=== PATIENT | male | born 1955 | race Caucasian/White ===

== ENCOUNTER 2017-12-20 09:59 | Observation (INO) | payer OTHER ==
[~2017-12-20] VITALS: Ht 172.7 cm; Wt 127.0 kg
[~2017-12-20 09:59] MED LIST: CARVEDILOL12.5 MG PO; CEPHALEXIN500 MG PO; FLOMAX0.4 MG PO; FUROSEMIDE40 MG PO; HYDRALAZINE HCL25 MG PO; LISINOPRIL10 MG PO; METOPROLOL TART25 MG PO; NITROGLYCERIN0.4 MG SL; NORCO 10-325 T1 EACH; OXYCONTIN10 MG PO; PROPAFENONE HC325 MG PO; SOMA350 MG PO; XARELTO20 MG
[2017-12-20] MEDS ORDERED: ASPIRIN 81 MG CHEW TAB PO ONE (10:15)
[2017-12-20 10:33] LABS: BASOPHILS # (AUTO) 0.1 (0.0-0.1); BASOPHILS % 1.3 % (0.0-1.0); EOSINOPHILS # (AUTO) 0.3 (0.0-0.4); EOSINOPHILS % 3.3 % (0.0-6.0); HEMATOCRIT 36.6 % (38.2-49.6); HEMOGLOBIN 11.4 g/dL (14.0-18.0); LYMPHOCYTES # (AUTO) 1.9 (1.0-3.2); LYMPHOCYTES % 23.7 % (18.0-39.1); MEAN CORPUSCULAR HEMOGLOBIN 25.4 pg (28-32); MEAN CORPUSCULAR HGB CONC 31.1 g/dL (31-35); MEAN CORPUSCULAR VOLUME 81.7 fL (81-99); MONOCYTES % 11.8 % (4.4-11.3); NEUTROPHILS # (AUTO) 4.9 (2.1-6.9); NEUTROPHILS % 59.7 % (38.7-80.0); PLATELET COUNT 257 x10e3/uL (140-360); RED BLOOD COUNT 4.48 x10e6/uL (4.3-5.7); RED CELL DISTRIBUTION WIDTH 14.7 % (11.7-14.4)
[2017-12-20 10:51] LABS: ALANINE AMINOTRANSFERASE 35 IU/L (0-55); ALBUMIN 3.7 g/dL (3.5-5.0); ALBUMIN/GLOBULIN RATIO 1.1 (0.8-2.0); ALKALINE PHOSPHATASE 43 IU/L (40-150); ANION GAP 15.6 mmol/L (8-16); BLOOD UREA NITROGEN 9 mg/dL (7-26); BUN/CREATININE RATIO 11 (6-25); CALCIUM 9.6 mg/dL (8.4-10.2); CARBON DIOXIDE 24 mmol/L (22-29); CHLORIDE 105 mmol/L (98-107); CREATINE KINASE 175 IU/L (30-200); EST GLOMERULAR FILTRATION RATE > 60 ML/MIN (60-); GLUCOSE 117 mg/dL (74-118); POTASSIUM 4.6 mmol/L (3.5-5.1); SODIUM 140 mmol/L (136-145)
--- NOTE | 2017-12-20 11:04 | Diagnostic Imaging Report ---
EXAMINATION: CHEST SINGLE (PORTABLE) INDICATION: Shortness of breath \S\chest \S\[id number] \S\1025 COMPARISON: 09/15/2016 FINDINGS: AP view TUBES and LINES: None. LUNGS: Limited by body habitus. Lungs are well inflated. No focal consolidation. Mild central vascular congestion. PLEURA: No pleural effusion or pneumothorax. HEART AND MEDIASTINUM: The cardiac silhouette is enlarged on this AP view. BONES AND SOFT TISSUES: No acute osseous lesion. Soft tissues are unremarkable. UPPER ABDOMEN: No free air under the diaphragm. IMPRESSION: No focal consolidation. Mild central vascular congestion. Signed by: Dr. Dominick Johnson MD on 12/20/2017 11:00 AM
[2017-12-20 11:05] LABS: BILIRUBIN,URINE NEGATIVE (NEGATIVE); CLARITY,URINE CLEAR (CLEAR); COLOR,URINE YELLOW (YELLOW); KETONES,URINE NEGATIVE (NEGATIVE); LEUKOCYTE ESTERASE ,URINE NEGATIVE (NEGATIVE); NITRITE,URINE NEGATIVE (NEGATIVE); PROTEIN,URINE DIPSTICK NEGATIVE (NEGATIVE); URINE UROBILINOGEN 0.2 mg/dL (0.2 - 1)
[2017-12-20 11:17] LABS: WBC,URINE (MAN) 0-5 /HPF (0-5)
[2017-12-20 11:21] LABS: INR 1.01; PROTHROMBIN TIME 12.5 seconds (11.9-14.5)
--- OUTSIDE RECORDS SUMMARY | 2017-12-20 12:08 | XMS REPORT ---
Author Author [facility] Address Unknown Phone Unavailable Care Team Providers Care Cigar Making Machine Operator Name Role Phone ROSMERY WESTON Unavailable Unavailable Problems This patient has no known problems. Allergies, Adverse Reactions, Alerts This patient has no known allergies or adverse reactions. Medications This patient has no known medications. Results Test Description Test Time Test Comments Text Results Atomic Results Result Comments CHEST SINGLE (PORTABLE) [facility] [address] [place], [place] [address] Patient Name: JUAN DIEGO HERNANDEZ MR #: [id number] : 1955 Age/Sex: 62/M Req #: [id number] Adm Physician: Ordered by: TYLER CUEVAS FIRE RANGER Report #: [id number] Location: ER Room/Bed: Procedure: [id number] DX/CHEST SINGLE (PORTABLE) Exam Date: 12/20/17 Exam Time: 1025 REPORT STATUS: Signed EXAMINATION: CHEST SINGLE (PORTABLE) INDICATION: Shortness of breath COMPARISON: 09/15/2016 FINDINGS: AP view TUBES and LINES: None. LUNGS: Limited by body habitus. Lungs are well inflated. No focal consolidation. Mild central vascular congestion. PLEURA: No pleural effusion or pneumothorax. HEART AND MEDIASTINUM: The cardiac silhouette is enlarged on this AP view. BONES AND SOFT TISSUES: No acute osseous lesion. Soft tissues are unremarkable. UPPER ABDOMEN: No free air under the diaphragm. IMPRESSION: No focal consolidation. Mild central vascular congestion. Signed by: Dr. Dominick Hitchcock MD on 12/20/2017 11 :00 AM Dictated By: DOMINICK HITCHCOCK MD 1100 Transcribed By: SANTOS on 12/20/17 1100 COPY TO: TYLER CUEVAS NP
[2017-12-20] MEDS ORDERED: HYDRALAZINE HCL 20 MG/ML VIAL IV PRN (12:30)
[2017-12-20] MEDS ORDERED: MORPHINE SULFATE 4 MG/ML SYR IV PRN (12:30)
[2017-12-20] MEDS ORDERED: MELATONIN 5 MG TABLET PO PRN (12:30)
[2017-12-20] MEDS ORDERED: HYDROCODONE/APAP 5MG-325MG TAB PO PRN (12:30)
[2017-12-20] MEDS ORDERED: ACETAMINOPHEN 325 MG TAB PO PRN (12:30)
[2017-12-20] MEDS ORDERED: ONDANSETRON HCL INJ 2 MG/ML VIAL IV PRN (12:30)
--- NOTE | 2017-12-20 13:19 | History and Physical ---
CHIEF COMPLAINT: Shortness of breath. HPI: This is a 62-year-old male, morbidly obese, with many medical issues. Of note, history of AFib, hypertension, and coronary artery disease. He presented to the ED after complaints of orthopnea that began early this morning while he was asleep. He also has dyspnea on exertion as well. He recently saw his rn psych this last week 4 days ago and had a 2-D echo at that time. The patient is very noncompliant with his diuretics. He denies any chest pain, palpitations or any other complaints at this time. The patient was seen and evaluated at bedside in the ER, currently doing well, satting well, with no other issues. He does report having some shortness of breath on examination, though he is on room air. REVIEW OF SYSTEMS: Pertinent positives: Shortness of breath, lower extremity edema. Pertinent negatives: Denies any chest pain, palpitations, nausea, vomiting, diarrhea, dysuria, hematuria, frequency, urgency, lightheadedness, dizziness, abdominal pain, headache, fever or any other complaints. The rest of the 14-point review of systems have been reviewed with the patient and are negative. ALLERGIES: NO KNOWN DRUG ALLERGIES. HOME MEDICATIONS 1. Cephalexin 500 mg p.o. q.i.d. 2. Furosemide 40 mg daily. 3. Nitroglycerin as needed. 4. Oxycodone 10 mg every 4 hours as needed for pain. PAST MEDICAL HISTORY: CHF, CAD, hypertension, chronic pain syndrome. SURGICAL HISTORY: He reports none. FAMILY HISTORY: Hypertension, diabetes. SOCIAL HISTORY: No drugs. No alcohol. He does not smoke. He lives alone at home. VITAL SIGNS: Temperature 98, pulse 64, respiratory rate 18, blood pressure 141/94, pulse ox 97% on room air. LAB FINDINGS: White count 8.1, hemoglobin 11.4, hematocrit 37, platelets 257. Coagulation: PT 12.5, INR 1, PTT 23. Chemistry: Sodium 140, potassium 4.6, chloride 105, bicarb 24, anion gap 15, BUN 9, creatinine 0.8, glucose 117, calcium 9.6. LFTs were normal. Troponin is 0.017. BNP 400. Total protein 7, albumin 3.7. Urinalysis is negative. MICROBIOLOGY: None. IMAGING STUDIES: Chest x-ray: No focal consolidation. Mild central vascular congestion. PHYSICAL EXAMINATION GENERAL: Not in acute distress. Alert and oriented x3. Cooperative on exam. HEENT: Head is normocephalic, atraumatic. Eyes: Pupils are equal, round and reactive to light bilaterally. The extraocular movements are intact bilaterally. NECK: Supple. Good range of motion throughout. No evidence of any erythema or exudates. The posterior pharynx has poor dentition. PULMONARY: Clear to auscultation bilaterally. No wheezing. No rales. No rhonchi appreciated. CARDIOVASCULAR: Positive S1 and S2. No murmurs, rubs or gallops appreciated. ABDOMEN: Soft, nondistended and nontender to palpation. Bowel sounds are present. MUSCULOSKELETAL: Strength 5/5 throughout. No evidence of any musculoskeletal deficit on examination. No weakness appreciated. NEUROLOGIC: Cranial nerves II through XII were grossly intact. No evidence of any neurological deficit on exam. SKIN: Intact. Warm to touch. Good capillary refill. PSYCHIATRIC: Normal affect and mood. EXTREMITIES: He has 2+ pedal edema, bilateral lower extremities. IMPRESSION 1. Acute exacerbation of congestive heart failure with underlying shortness of breath. 2. Hypertension. 3. Chronic pain syndrome. 4. Prophylaxis. 5. Fluids, electrolytes and nutrients. 6. Disposition. PLAN: At this time, there is no recent 2-D echo. Unsure about the type of heart failure that he has but seems to be that he may have underlying diastolic dysfunction. Troponins are negative. Will continue to trend. EKG shows no acute findings. Cardiology consulted. Continue cardioprotective medications. Lasix 40 mg IV q.6 h. times 6 doses with scheduled potassium supplements. We are going to resume all his home medications and monitor him closely. He will be under observation and will monitor overnight. Pain control. Antinausea medication and p.r.n. hydralazine as needed for blood pressure if elevated. Job#: [id number]
[2017-12-20] MEDS: METOPROLOL TARTRATE 25 MG TAB PO SCH ×3 (13:25→20:15)
[2017-12-20] MEDS: PROPAFENONE HCL SR 325 MG CAPCR PO SCH (13:42)
[2017-12-20 14:07] VITALS: BP 172/88
[2017-12-20 14:48] VITALS: BP 127/87
[2017-12-20 14:55] VITALS: BP 127/87
[2017-12-20 16:00] VITALS: BP 147/79
[2017-12-20 17:43] VITALS: BP 150/73
[2017-12-20] MEDS: FUROSEMIDE INJ 10 MG/ML 4 ML VIAL IV SCH (17:44)
[2017-12-20 20:00] VITALS: BP 131/80
[2017-12-20] MEDS ORDERED: TAMSULOSIN HCL 0.4 MG CAP PO SCH (21:00)
[2017-12-21 00:19] VITALS: BP 117/56
[2017-12-21 00:56] LABS: CREATINE KINASE MB 1.3 ng/mL (0-5.0)
[2017-12-21] MEDS: PROPAFENONE HCL SR 325 MG CAPCR PO SCH (01:00)
[2017-12-21] MEDS: FUROSEMIDE INJ 10 MG/ML 4 ML VIAL IV SCH (01:34)
[2017-12-21] MEDS ORDERED: ASPIRIN 81 MG CHEW TAB PO SCH (09:00)
[2017-12-21] MEDS ORDERED: POTASSIUM CHLORIDE 20 MEQ TAB CR PO SCH (09:00)
--- NOTE | 2017-12-21 11:41 | Discharge Summary ---
FINAL DISCHARGE DIAGNOSES 1. Patient left against medical advice. 2. Patient was being treated for underlying acute exacerbation of congestive heart failure with lower extremity edema. 3. Patient was being treated for shortness of breath. LOCKER ROOM MANAGER: Cardiology. VITAL SIGNS: Patient left against medical advice. LABS: His white count was 8.1, hemoglobin 11.4, hematocrit 37, platelets 257. Coagulations are normal. Chemistries: Sodium 140, potassium 4.6, chloride 105, bicarb 24, anion gap 15, BUN 9, creatinine 0.8. Glucose is 117. Calcium is 9.6. LFTs were normal. Troponins were negative. Urinalysis was negative. MICROBIOLOGY: None. IMAGING STUDIES: Chest x-ray showed evidence of mild central vascular congestion. HOSPITAL COURSE: This 62-year-old male, morbidly obese, with history of CHF, comes in with complaints of shortness of breath and worsening lower extremity edema. Patient was admitted under observation and started on IV Lasix for diuresis. Patient was doing well in the ER but still required some oxygen. Once the patient was admitted, the patient initially was doing well, then approximately around 4 a.m., he wanted to leave against medical advice, and he reported that he wanted to go outside and smoke plus he got tired of urinating too much. Patient left against medical advice. Patient signed appropriate documents left in the chart. MEDICATIONS: Left AMA. DISPOSITION: Left AMA. FOLLOWUP: Left against medical advice. LON GOMEZ MD Job#: [id number]
--- NOTE | 2017-12-21 17:16 | Consultation ---
DATE OF CONSULTATION: December 20, 2017 REQUESTING PHYSICIAN: Dr. Strickland. REASON FOR CONSULTATION: CHF. HISTORY OF PRESENT ILLNESS: Mr. Martinez is a 62-year-old gentleman with past medical history as listed below, presented with complaints of shortness of breath and leg edema. Patient states that he got short of breath more than usual yesterday and also noticed some leg swelling and so decided to come to the hospital. He was noted to be in CHF. Patient denies stopping any of his medications or eating a lot of salt. Denies any chest pain or palpitations. He has a history of paroxysmal atrial fibrillation. REVIEW OF SYMPTOMS CONSTITUTIONAL: Has some fatigue and weakness. HEENT: No headache, blurring of vision, seizures, or syncope. CARDIOVASCULAR: No chest pain. Has dyspnea. No orthopnea or leg edema. RESPIRATORY: No cough, fever, or expectoration. GI: No abdominal pain, vomiting, or diarrhea. : No dysuria, frequency, or incontinence. ALLERGIES: NO KNOWN DRUG ALLERGIES. MEDICATIONS: See list. PAST MEDICAL HISTORY 1. History of hypertension. 2. History of CHF. 3. History of paroxysmal atrial fibrillation. 4. History of hyperlipidemia. PAST SURGICAL HISTORY: History of hernia repair in 1994. SOCIAL HISTORY: Does not smoke or drink. FAMILY HISTORY: Noncontributory. PHYSICAL EXAMINATION GENERAL: Obese gentleman, alert, oriented, not in any obvious distress. VITALS: Heart rate is 56, blood pressure is 177/101. HEENT: Atraumatic. NECK: No JVD, bruit, thyromegaly, or lymphadenopathy. CARDIOVASCULAR: First and 2nd heart sounds are heard. No murmurs, rubs, or gallops appreciated. CHEST: Decreased air entry at the bases. No adventitious sounds appreciated. ABDOMEN: Obese and nontender. EXTREMITIES: Edema 2+. LABS: WBC is 8.1, hemoglobin 11.4, hematocrit 36.6, and platelets are 257,000. Sodium is 140, potassium 4.6, chloride is 105, BUN is 9, creatinine is 0.8, and glucose is 117. AST is 30, ALT is 35, and alkaline phosphatase is 43. CK is 175. Troponin is 0.017. BNP is 396. IMPRESSIONS 1. Congestive heart failure; [id number]-fhvwrxv diastolic. 2. Hypertension. 3. Paroxysmal atrial fibrillation. 4. Obesity. 5. History of hyperlipidemia. PLAN 1. IV diuresis. 2. Patient had an echocardiogram done recently as an outpatient which showed an ejection fraction of 50 to 55%, mild concentric LVH. 3. Patient has a history of paroxysmal atrial fibrillation. He has refused to take any anticoagulation, just takes aspirin. 4. His is on propafenone, can continue the same. 5. I's and O's. 6. Fluid restriction. 7. Further cardiac workup depending on the clinical course. Discussed my impression, plan, and management with the patient and he understands. As always, I appreciate and thank you very much for your referral. Job#: [id number] CF
== END 2017-12-21 06:43 | disposition left against medical advice (07) ==
LOC: ER 09:59 → ERHOLD 12:05 → IMCU 13:31 → UNDODISOB 12-21 06:43
PROVIDERS: ADMIT Internal Medicine; ATTEND Internal Medicine
DX: I11.0 Hypertensive heart disease with heart failure (principal); I50.33 Acute on chronic diastolic (congestive) heart failure; E78.5 Hyperlipidemia, unspecified; E66.01 Morbid (severe) obesity due to excess calories; Z68.41 Body mass index [BMI] 40.0-44.9, adult; G89.4 Chronic pain syndrome; I48.0 Paroxysmal atrial fibrillation
CPT/HCPCS: 36415; 71045; 80053; 81001; 82550; 82553; 83880; 84484; 85025; 85610; 85730; 93005; 94760; 99284; G0378; J1940

== ENCOUNTER 2018-06-18 14:50 | Observation (INO) | payer OTHER ==
[~2018-06-18] VITALS: Ht 172.7 cm; Wt 128.0 kg
[2018-06-18] MEDS ORDERED: MELOXICAM7.5 MG PO (15:56)
[2018-06-18] MEDS ORDERED: PROPAFENONE HC225 MG PO (15:56)
[2018-06-18] MEDS ORDERED: ONE DAILY1 EAC1 PO (15:56)
[2018-06-18] MEDS ORDERED: ATORVASTATIN CA20 MG PO (15:56)
[2018-06-18] MEDS ORDERED: FISH OIL PO (15:56)
[2018-06-18] MEDS ORDERED: ASPIRIN81 MG PO (15:56)
[2018-06-18 16:15] LABS: BASOPHILS # (AUTO) 0.1 (0.0-0.1); BASOPHILS % 0.8 % (0.0-1.0); EOSINOPHILS # (AUTO) 0.1 (0.0-0.4); EOSINOPHILS % 1.5 % (0.0-6.0); HEMATOCRIT 41.9 % (38.2-49.6); HEMOGLOBIN 13.6 g/dL (14.0-18.0); LYMPHOCYTES # (AUTO) 1.6 (1.0-3.2); LYMPHOCYTES % 17.8 % (18.0-39.1); MEAN CORPUSCULAR HGB CONC 32.5 g/dL (31-35); MEAN CORPUSCULAR VOLUME 89.3 fL (81-99); MONOCYTES # (AUTO) 0.9 (0.2-0.8); MONOCYTES % 10.1 % (4.4-11.3); NEUTROPHILS # (AUTO) 6.2 (2.1-6.9); NEUTROPHILS % 69.4 % (38.7-80.0); PLATELET COUNT 207 x10e3/uL (140-360); RED BLOOD COUNT 4.69 x10e6/uL (4.3-5.7); RED CELL DISTRIBUTION WIDTH 13.3 % (11.7-14.4)
[2018-06-18 16:19] LABS: INR 1.09; PROTHROMBIN TIME 13.3 seconds (11.9-14.5)
[2018-06-18 16:23] LABS: BILIRUBIN,URINE NEGATIVE (NEGATIVE); CLARITY,URINE CLEAR (CLEAR); COLOR,URINE YELLOW (YELLOW); KETONES,URINE NEGATIVE (NEGATIVE); LEUKOCYTE ESTERASE ,URINE NEGATIVE (NEGATIVE); NITRITE,URINE NEGATIVE (NEGATIVE); PROTEIN,URINE DIPSTICK NEGATIVE (NEGATIVE); URINE UROBILINOGEN 0.2 mg/dL (0.2 - 1)
[2018-06-18 16:27] LABS: ALANINE AMINOTRANSFERASE 50 IU/L (0-55); ALBUMIN 3.8 g/dL (3.5-5.0); ALBUMIN/GLOBULIN RATIO 1.2 (0.8-2.0); ALKALINE PHOSPHATASE 44 IU/L (40-150); ANION GAP 17.2 mmol/L (8-16); BLOOD UREA NITROGEN 16 mg/dL (7-26); BUN/CREATININE RATIO 16 (6-25); CALCIUM 9.9 mg/dL (8.4-10.2); CARBON DIOXIDE 22 mmol/L (22-29); CHLORIDE 103 mmol/L (98-107); CREATINE KINASE 142 IU/L (30-200); CREATININE, SERUM 1.01 mg/dL (0.72-1.25); EST GLOMERULAR FILTRATION RATE > 60 ML/MIN (60-); GLUCOSE 135 mg/dL (74-118); POTASSIUM 4.2 mmol/L (3.5-5.1); SODIUM 138 mmol/L (136-145)
[2018-06-18 16:33] LABS: BACTERIA,URINE MODERATE /HPF; CALCIUM OXALATE CRYSTALS,UR FEW (FEW); EPITHELIAL CELLS,URINE RARE /LPF
[2018-06-18 16:47] LABS: THYROID STIMULATING HORMONE 3.483 uIU/mL (0.350-4.940)
[2018-06-18] MEDS ORDERED: DILTIAZEM HCL 5 MG/ML 5 ML VIAL IV NR (16:47)
--- NOTE | 2018-06-18 17:03 | Diagnostic Imaging Report ---
A single frontal view of the chest. HISTORY: Chest pain COMPARISON: None available. DISCUSSION: Portable technique, limits sensitivity of the exam. Soft tissue attenuation partially limits sensitivity of the exam. Overlying monitoring leads. Tubes/Lines: None Lungs and pleura: Low lung volumes result in bibasilar vascular crowding, accentuation of the pulmonary interstitial markings, central pulmonary vasculature, and the cardiac silhouette. Allowing for these limitations, the findings are as follows: No evidence of a consolidative pneumonia or pulmonary alveolar edema. No definite pleural effusion or pneumothorax is identified. Heart and mediastinum: The cardiomediastinal silhouette appears unremarkable. Bones: No acute osseous lesion is identified, given this limited exam. IMPRESSION: No acute radiographic abnormality. Signed by: Dr. Lefty Ratliff D.O., M.M.M. on 06/18/2018 4:59 PM
[2018-06-18] MEDS: SODIUM CHLORIDE 0.9% 1000ML 1,000 ML IV SCH (17:45)
[2018-06-18 19:15] VITALS: BP 132/74
[2018-06-18 19:45] VITALS: BP 130/74
[2018-06-18 20:00] VITALS: BP 130/74
[2018-06-19] MEDS: SODIUM CHLORIDE 0.9% 1000ML 1,000 ML IV SCH (00:25)
[2018-06-19 00:40] VITALS: BP 124/58
[2018-06-19 03:40] VITALS: BP 139/65
[2018-06-19] MEDS ORDERED: FUROSEMIDE 40 MG TAB PO PRN (07:00)
[2018-06-19] MEDS ORDERED: METOPROLOL TARTRATE 25 MG TAB PO SCH (07:30)
[2018-06-19 08:00] VITALS: BP 159/74
[2018-06-19] MEDS ORDERED: HYDRALAZINE HCL 20 MG/ML VIAL IV PRN (08:15)
[2018-06-19] MEDS ORDERED: HYDRALAZINE HCL 25 MG TAB PO ONE (08:45)
--- NOTE | 2018-06-19 08:55 | Consultation ---
DATE OF CONSULTATION: June 18, 2018 CARDIOLOGY CONSULTATION REASON FOR CONSULTATION: AFib with RVR. HPI: This is a morbidly obese 63-year-old male that presented with palpitations. According to the patient, he was at the [employer] office. He was pissed off and very mad that his heart started pounding. He also complained of right knee pain. He kept having excruciating pain that he decided to come into the emergency room for evaluation. He has a history of paroxysmal AFib and refused to be on p.o. anticoagulation, but only on aspirin. He denied any chest pain, any dizziness, any shortness of breath, any diaphoresis or headache. Troponin was negative. EKG showed AFib, irregularly irregular. PAST MEDICAL HISTORY: Hypertension, CHF, paroxysmal AFib, hyperlipidemia, CAD, chronic pain, obesity, and BPH. PAST SURGICAL HISTORY: Hernia repair. SOCIAL HISTORY: Does not smoke or drink. FAMILY HISTORY: Noncontributory. REVIEW OF SYSTEMS: Negative except as mentioned above. He came in with AFib and he converted back to normal sinus rhythm with some PACs. PHYSICAL EXAMINATION VITAL SIGNS: Temperature 97, heart rate 60, blood pressure 159/60, respirations 18, oxygen saturation 97% on room air. GENERAL: He is awake, alert, and oriented times 3. HEENT: Mucous membrane moist. NECK: Supple. LUNGS: Bilateral clear to auscultation. CARDIOVASCULAR: S1 and S2 present. ABDOMEN: Soft. NEUROLOGICAL: Intact. EXTREMITIES: With no edema. LABS: Sodium 138, potassium 4.2, chloride 103, CO2 22, BUN 16, creatinine 1.01, glucose 136. White blood cell 8.93, hemoglobin 13.6, hematocrit 41.9, and platelets 207,000. IMPRESSION 1. Paroxysmal atrial fibrillation. 2. Hypertension. 3. Obesity. 4. Hyperlipidemia. 5. History of chronic pain. ASSESSMENT AND PLAN 1. Will go ahead and get an echo to assess the LV and the valve function. 2. Risks and benefits of aspirin and Xarelto explained to him. He finally agreed to start Xarelto. 3. His heart rate has been 59-60. Will go ahead and hold beta romina if heart rate is less than 60. Further cardiac workup pending clinical course. Thank you for this consult. DICTATED BY STEPHANIE VARGAS NP Job#: [id number] RI
[2018-06-19 09:56] VITALS: BP 159/79
--- NOTE | 2018-06-19 09:59 | History and Physical ---
CHIEF COMPLAINT: This is a 63-year-old gentleman, comes in with chest pain and pounding heart. HISTORY OF PRESENTING ILLNESS: This is Mr. Luan Martinez with a history of AFib in the past, was in usual state of health until he started to have a fast and a pounding heart beat and questionable chest pain. The patient checked his blood pressure, it was normal, but his heart rate went from 120 to 140 and the patient came in and was admitted for AFib with rapid ventricular response. The patient was recently started on propafenone (Rythmol) by Dr. Weaver and apparently the patient has not yet taken it, also has history of taking metoprolol for rate control. Patient was also on Xarelto, he did not like it, he stopped it, has not done any cardiac workup. No stress test has been done, and patient refuses to have a cardiac cath and/or stress test at this time. PAST MEDICAL HISTORY: History of hypertension, history of AFib with RVR. SURGICAL HISTORY: Ventral hernia repair and septorhinoplasty in the past too. REVIEW OF SYSTEMS: Positive for chest pain. The patient has taken 2 nitroglycerins prior to coming here and it did help him. Positive for some shortness of breath. No nausea, vomiting, diarrhea. No constipation or rectal bleeding. No hematochezia, no hematemesis. No abdominal bleeding. No melena. No diplopia. No blurry vision. No altered mental status either. MEDICATIONS: He was taking at home were metoprolol 25 mg extended release tablets. He also takes atorvastatin 40 mg for his hyperlipidemia, tamsulosin 0.4 mg for his BPH, and aspirin. The patient was recently started on propafenone (Rythmol) 225 mg. He also takes meloxicam for arthritis. PHYSICAL EXAMINATION: GENERAL: Patient is alert and oriented x3. Patient is morbidly obese. VITAL SIGNS: Blood pressure is 139/65, respiration of 18, pulse of 61, pulse oximetry 94% on room air. HEENT: Normocephalic, atraumatic. Patient has symptoms and signs of sleep apnea. CVS: S1 and S2. Irregularly irregular. ABDOMEN: Nontender, nondistended. There is a ventral scar present. EXTREMITIES: No clubbing. Positive for edema. LABORATORY VALUES: Initial white count was 8.93, hemoglobin of 13.6, neutrophil count of 69.4, no left shift present. Chemistry: Sodium of 138, BUN 16, creatinine 1.01. Glucose is 159, the patient has diabetes, has been given metformin, but has refused taking metformin. AST was 42. TSH was 3.48. Coags were normal. Urine also shows some moderate bacteria with hyaline cast in it. IMAGING STUDIES: Chest x-ray shows no acute radiographic abnormalities. The patient has been asked to do a echo and at this time he refuses; and has to call Dr. Weaver and check for echo results. ASSESSMENT: Mqv[age]-zyz-ndfn-old male with diabetes mellitus, history of hypertension, history of atrial fibrillation, comes in with atrial fibrillation with rapid ventricular response. Cardiac enzymes were negative. The patient was given Cardizem intravenously with improvement. Patient will be admitted. Will talk to Dr. Weaver about further recommendation and care. Will recommend a cardiac catheterization and/or stress test patient will talk to Dr. Weaver about it, and also echocardiogram. Will add a thyroid-stimulating hormone, T4, T3 to his panel and continue monitoring his cardiac panels. I did talk to him about his diabetes. Patient at this time does not want any medications. Job#: [id number]
[2018-06-19] MEDS ORDERED: HYDROCODONE/APAP 5MG-325MG TAB PO PRN (10:30)
[2018-06-19 12:32] VITALS: BP 150/78
[2018-06-19] MEDS ORDERED: XARELTO20 MG PO ×2 (13:34→13:35)
[2018-06-19] MEDS ORDERED: RIVAROXABAN 20 MG TABLET PO SCH (17:00)
[2018-06-19] MEDS ORDERED: TAMSULOSIN HCL 0.4 MG CAP PO SCH (21:00)
[2018-06-19] MEDS ORDERED: ATORVASTATIN 40 MG TAB PO SCH (21:00)
[2018-06-19] MEDS ORDERED: ATORVASTATIN 20 MG TAB PO SCH (21:00)
== END 2018-06-19 13:51 | disposition home or self-care (01) ==
LOC: ER 14:50 → ERHOLD 16:48 → IMCU 18:43
PROVIDERS: ADMIT Family Medicine; ATTEND Family Medicine
DX: I48.2 Chronic atrial fibrillation (principal); R00.2 Palpitations; R07.9 Chest pain, unspecified; F17.210 Nicotine dependence, cigarettes, uncomplicated; N40.0 Benign prostatic hyperplasia without lower urinary tract symptoms; M19.90 Unspecified osteoarthritis, unspecified site; E11.9 Type 2 diabetes mellitus without complications; E78.5 Hyperlipidemia, unspecified; E66.9 Obesity, unspecified; G89.29 Other chronic pain; I25.10 Atherosclerotic heart disease of native coronary artery without angina pectoris; I11.0 Hypertensive heart disease with heart failure; I50.9 Heart failure, unspecified; Z68.41 Body mass index [BMI] 40.0-44.9, adult
CPT/HCPCS: 36415; 71045; 80053; 81001; 82550; 82553; 82948; 83036; 84443; 84484; 85025; 85610; 93005; 99284; G0378 ×2; J7030; J0360

== ENCOUNTER 2019-01-02 03:31 | Emergency (ER) | payer OTHER ==
[~2019-01-02] VITALS: Ht 172.7 cm; Wt 127.9 kg
[~2019-01-02 03:31] MED LIST changes: +ASPIRIN81 MG PO; +ATORVASTATIN CA20 MG PO; +FISH OIL PO; +MELOXICAM7.5 MG PO; +ONE DAILY1 EAC1 PO; +PROPAFENONE HC225 MG PO; +XARELTO20 MG PO
--- OUTSIDE RECORDS SUMMARY | 2019-01-02 03:33 | XMS REPORT | Clinical Summary ---
Author Author [facility] Address Unknown Phone Unavailable Care Team Providers Care Acid Condenser Name Role Phone Lencho Kidd MD PCP Allergies Not on File Medications Not on file Active Problems Not on file Social History Date Tobacco Use Types Packs/Day Years Used Never Assessed Sex Assigned at Date Recorded Not on file Industry Job Start Date Occupation Not on file Not on file Not on file Travel End Travel History Travel Start No recent travel history available. Last Filed Vital Signs Not on file Plan of Treatment Not on file Results Not on fileafter 01/01/2018 Insurance Payer Benefit Subscriber ID Type Phone Address Plan / Group MEDICAID - MEDICAID [facility] xxxxxxxxx Medicaid CARE COMM STAR Contracted PLAN
[2019-01-02] MEDS ORDERED: KETOROLAC TROMETHAMINE 60 MG/2 ML VIAL IM ONE (04:30)
--- NOTE | 2019-01-02 04:34 | Diagnostic Imaging Report ---
Exam: Abdominal film Clinical History: Upper abdominal pain Comparison: None. DISCUSSION: Frontal view of the abdomen shows a nonobstructive bowel gas pattern with mild amount of retained stool.There are no dilated, air-filled loops of bowel. There are no abnormal calcifications.No acute bone abnormality. Lung bases are clear. IMPRESSION: 1. Nonobstructive bowel gas pattern. The staff physician below has personally reviewed this exam on the date of dictation. Signed by: Dr. Yoni Tse M.D. on 01/02/2019 4:31 AM
[2019-01-02] MEDS ORDERED: ULTRAM50 MG PO (05:09)
[2019-01-02] MEDS ORDERED: LIDOCAINE 5% PATCH TP ONE (05:18)
[2019-01-02] MEDS: LIDOCAINE 5% PATCH TP ONE ×2 (05:23→06:28)
[2019-01-02 06:02] LABS: BASOPHILS # (AUTO) 0.1 (0.0-0.1); BASOPHILS % 0.8 % (0.0-1.0); EOSINOPHILS # (AUTO) 0.2 (0.0-0.4); EOSINOPHILS % 2.2 % (0.0-6.0); HEMATOCRIT 46.5 % (38.2-49.6); HEMOGLOBIN 15.3 g/dL (14.0-18.0); LYMPHOCYTES # (AUTO) 1.3 (1.0-3.2); LYMPHOCYTES % 15.6 % (18.0-39.1); MEAN CORPUSCULAR HEMOGLOBIN 28.2 pg (28-32); MEAN CORPUSCULAR HGB CONC 32.9 g/dL (31-35); MEAN CORPUSCULAR VOLUME 85.6 fL (81-99); MONOCYTES # (AUTO) 0.6 (0.2-0.8); MONOCYTES % 7.4 % (4.4-11.3); NEUTROPHILS # (AUTO) 6.1 (2.1-6.9); NEUTROPHILS % 73.8 % (38.7-80.0); PLATELET COUNT 195 x10e3/uL (140-360); RED BLOOD COUNT 5.43 x10e6/uL (4.3-5.7); RED CELL DISTRIBUTION WIDTH 17.7 % (11.7-14.4)
[2019-01-02 06:19] LABS: ALANINE AMINOTRANSFERASE 68 IU/L (0-55); ALBUMIN 4.1 g/dL (3.5-5.0); ALBUMIN/GLOBULIN RATIO 1.2 (0.8-2.0); ALKALINE PHOSPHATASE 49 IU/L (40-150); ANION GAP 15.3 mmol/L (8-16); BLOOD UREA NITROGEN 14 mg/dL (7-26); BUN/CREATININE RATIO 13 (6-25); CALCIUM 9.8 mg/dL (8.4-10.2); CARBON DIOXIDE 24 mmol/L (22-29); CHLORIDE 99 mmol/L (98-107); CREATININE, SERUM 1.07 mg/dL (0.72-1.25); EST GLOMERULAR FILTRATION RATE > 60 ML/MIN (60-); GLUCOSE 132 mg/dL (74-118); LIPASE 24 U/L (8-78); POTASSIUM 4.3 mmol/L (3.5-5.1); SODIUM 134 mmol/L (136-145)
[2019-01-02] MEDS ORDERED: HYDROCODONE/APAP 10MG-325MG TAB PO ONE (07:15)
--- NOTE | 2019-01-02 07:55 | Diagnostic Imaging Report ---
HISTORY: ^RUQ PAIN TECHNIQUE: Selected images from limited abdominal ultrasound provided for INTERPRETATION: COMPARISON: None. FINDINGS: Pancreas: Not visualized due to bowel gas. Liver: Measures 16.2 cm in sagittal plane. The echotexture is normal. No mass in the visualized portions. Portal Vein: Measures 1.0 cm. Proper directional flow on spectral Doppler interrogation. Biliary Tree: Normal Gallbladder: Present. A 2 cm gallstone in the gallbladder neck is mobile. No gallbladder wall thickening or pericholecystic fluid. CBD: 0.3 cm. Right Kidney: 10.5 cm in greatest length. The echotexture is normal. There is no evidence for mass. There is no collecting system dilatation or evidence of obstruction. No renal calculi evident. No adjacent free fluid or fluid collections. Visualized IVC and aorta are normal. There is no free fluid. IMPRESSION: Cholelithiasis. No sonographic evidence of acute cholecystitis. Normal biliary tree. Signed by: Dr. Chidi Parrish MD on 01/02/2019 7:52 AM
--- NOTE | 2019-01-02 08:30 | NUR ---
DR. WESTON AT BEDSIDE DISCUSSING FOLLOW UP WITH SURGEON
== END 2019-01-02 08:39 | disposition home or self-care (01) ==
LOC: ER 03:31
DX: R10.11 Right upper quadrant pain (principal); R11.0 Nausea; K80.70 Calculus of gallbladder and bile duct without cholecystitis without obstruction; I10 Essential (primary) hypertension; E78.5 Hyperlipidemia, unspecified; I48.91 Unspecified atrial fibrillation; I25.10 Atherosclerotic heart disease of native coronary artery without angina pectoris
CPT/HCPCS: 36415; 74018; 76705; 80053; 83605; 83690; 85025; 93005; 99284; J1885

== ENCOUNTER 2019-01-23 00:55 | Observation (INO) | payer OTHER ==
[~2019-01-23] VITALS: Ht 172.7 cm; Wt 111.6 kg
[~2019-01-23 00:55] MED LIST changes: +ULTRAM50 MG PO
--- OUTSIDE RECORDS SUMMARY | 2019-01-23 00:58 | XMS REPORT | Clinical Summary ---
Author Author [facility] Address Unknown Phone Unavailable Care Team Providers Care Kier Operator Name Role Phone Lencho Kidd MD PCP [...] Not on file Results Not on fileafter 01/22/2018 Insurance Payer Benefit Subscriber ID Type Phone Address Plan / Group MEDICAID - MEDICAID MGD [facility] xxxxxxxxx Medicaid CARE COMM STAR Contracted PLAN
[2019-01-23] MEDS ORDERED: ASPIRIN 81 MG CHEW TAB PO ONE (01:30)
[2019-01-23 02:14] LABS: BILIRUBIN,URINE NEGATIVE (NEGATIVE); CLARITY,URINE CLEAR (CLEAR); COLOR,URINE STRAW (YELLOW); KETONES,URINE NEGATIVE (NEGATIVE); LEUKOCYTE ESTERASE ,URINE NEGATIVE (NEGATIVE); NITRITE,URINE NEGATIVE (NEGATIVE); PROTEIN,URINE DIPSTICK NEGATIVE (NEGATIVE); URINE UROBILINOGEN 0.2 mg/dL (0.2 - 1)
[2019-01-23 02:15] LABS: INR 0.86; PROTHROMBIN TIME 12.2 seconds (11.9-14.5)
[2019-01-23 02:16] LABS: PARTIAL THROMBOPLASTIN TIME 28.8 seconds (23.8-35.5)
[2019-01-23 02:20] LABS: EPITHELIAL CELLS,URINE RARE /LPF; RBC,URINE 0-5 /HPF (0-5); WBC,URINE (MAN) 0-5 /HPF (0-5)
[2019-01-23 02:21] LABS: BASOPHILS # (AUTO) 0.1 (0.0-0.1); BASOPHILS % 1.3 % (0.0-1.0); EOSINOPHILS # (AUTO) 0.3 (0.0-0.4); EOSINOPHILS % 4.8 % (0.0-6.0); HEMATOCRIT 47.1 % (38.2-49.6); HEMOGLOBIN 15.3 g/dL (14.0-18.0); LYMPHOCYTES # (AUTO) 1.8 (1.0-3.2); MEAN CORPUSCULAR HEMOGLOBIN 28.2 pg (28-32); MEAN CORPUSCULAR HGB CONC 32.5 g/dL (31-35); MEAN CORPUSCULAR VOLUME 86.7 fL (81-99); MONOCYTES # (AUTO) 0.7 (0.2-0.8); MONOCYTES % 10.9 % (4.4-11.3); NEUTROPHILS # (AUTO) 3.3 (2.1-6.9); NEUTROPHILS % 53.7 % (38.7-80.0); PLATELET COUNT 203 x10e3/uL (140-360); RED BLOOD COUNT 5.43 x10e6/uL (4.3-5.7); RED CELL DISTRIBUTION WIDTH 16.4 % (11.7-14.4)
[2019-01-23 02:26] LABS: ALANINE AMINOTRANSFERASE 47 IU/L (0-55); ALBUMIN 3.9 g/dL (3.5-5.0); ALBUMIN/GLOBULIN RATIO 1.1 (0.8-2.0); ALKALINE PHOSPHATASE 51 IU/L (40-150); BLOOD UREA NITROGEN 12 mg/dL (7-26); BUN/CREATININE RATIO 14 (6-25); CARBON DIOXIDE 23 mmol/L (22-29); CHLORIDE 104 mmol/L (98-107); CREATINE KINASE 142 IU/L (30-200); CREATININE, SERUM 0.86 mg/dL (0.72-1.25); EST GLOMERULAR FILTRATION RATE > 60 ML/MIN (60-); GLUCOSE 99 mg/dL (74-118); MAGNESIUM 2.1 MG/DL (1.3-2.1); SODIUM 137 mmol/L (136-145)
--- NOTE | 2019-01-23 02:43 | Diagnostic Imaging Report ---
EXAMINATION: CHEST SINGLE (PORTABLE) INDICATION: ^AFIB COMPARISON: Chest x-ray 06/18/2018. 12/20/2017. FINDINGS: AP view TUBES and LINES: None. LUNGS: Lungs are well inflated. Lungs are clear. There is no evidence of pneumonia or pulmonary edema. PLEURA: No pleural effusion or pneumothorax. HEART AND MEDIASTINUM: The cardiomediastinal silhouette is unremarkable. BONES AND SOFT TISSUES: No acute osseous lesion. Soft tissues are unremarkable. UPPER ABDOMEN: No free air under the diaphragm. IMPRESSION: No acute thoracic abnormality. Signed by: Dr. Bird Perez M.D. on 01/23/2019 2:39 AM
[2019-01-23] MEDS ORDERED: METOPROLOL TARTRATE INJ 1 MG/ML VIAL IV ONE (02:45)
[2019-01-23] MEDS ORDERED: ENOXAPARIN SODIUM INJ 100 MG/ML SYR SC ONE (04:00)
[2019-01-23] MEDS ORDERED: ONDANSETRON HCL INJ 2MG/ML 2ML 2 MG/ML VIAL IV PRN (04:15)
--- OUTSIDE RECORDS SUMMARY | 2019-01-23 04:19 | XMS REPORT | Clinical Summary ---
Author Author [facility] Address Unknown Phone Unavailable Care Team Providers Care Inspector Rag Sorting Name Role Phone Lencho Kidd MD PCP [...] Plan / Group MEDICAID - MEDICAID MGD [facility] xxxxxxxxx Medicaid CARE COMM STAR Contracted PLAN
[2019-01-23 04:40] VITALS: BP 134/85
--- NOTE | 2019-01-23 04:40 | NUR ---
PATIENT IS A NEW ADMIT THAT ARRIVED VIA STRETCHER. PATIENT HAS BEEN ASSISTED INTO THE BED. BED IS IN LOWEST POSITION AND CALL MORALES IS WITHIN REACH. WILL CONTINUE TO MONITOR PATIENT.
--- NOTE | 2019-01-23 07:01 | NUR ---
report given to day nurse. patient is resting in bed. call rincon is within reach.
[2019-01-23] MEDS ORDERED: TRAMADOL HCL 50 MG TAB PO PRN (08:00)
[2019-01-23] MEDS ORDERED: OXYCODONE HCL 10 MG TAB CR PO PRN (08:00)
[2019-01-23] MEDS ORDERED: SENNOSIDES 8.6 MG TAB PO PRN (08:00)
[2019-01-23] MEDS ORDERED: ZOLPIDEM TARTRATE 5 MG TAB PO PRN (08:00)
[2019-01-23] MEDS ORDERED: ACETAMINOPHEN 325 MG TAB PO PRN (08:00)
[2019-01-23] MEDS ORDERED: PROPAFENONE HCL 225 MG CAPCR PO SCH (08:00)
[2019-01-23] MEDS ORDERED: FUROSEMIDE 40 MG TAB PO PRN (08:00)
[2019-01-23] MEDS ORDERED: NITROGLYCERIN 0.4 MG SUBL SL PRN (08:00)
[2019-01-23 08:36] VITALS: BP 130/57
[2019-01-23] MEDS ORDERED: MULTIVITAMINS/MINERALS TAB PO SCH (09:00)
[2019-01-23] MEDS ORDERED: ASPIRIN 81 MG ENTERIC COATED PO SCH (09:00)
[2019-01-23] MEDS ORDERED: FAMOTIDINE 20 MG/2 ML VIAL IV SCH (09:00)
[2019-01-23] MEDS ORDERED: METOPROLOL TARTRATE 50 MG TAB PO SCH (09:00)
[2019-01-23] MEDS ORDERED: RIVAROXABAN 20 MG TABLET PO SCH (09:00)
[2019-01-23 12:00] VITALS: BP 124/63
[2019-01-23 13:50] VITALS: BP 124/63
[2019-01-23] MEDS ORDERED: FAMOTIDINE 20 MG TAB PO SCH (16:30)
[2019-01-23] MEDS ORDERED: ATORVASTATIN 20 MG TAB PO SCH (21:00)
[2019-01-23] MEDS ORDERED: TAMSULOSIN HCL 0.4 MG CAP PO SCH (21:00)
== END 2019-01-23 14:54 | disposition home or self-care (01) ==
LOC: ER 00:55 → ERHOLD 04:16 → IMCU 04:41
PROVIDERS: ADMIT Internal Medicine; ATTEND Internal Medicine
DX: I48.2 Chronic atrial fibrillation (principal); I50.9 Heart failure, unspecified; N40.0 Benign prostatic hyperplasia without lower urinary tract symptoms; M54.9 Dorsalgia, unspecified; Z82.49 Family history of ischemic heart disease and other diseases of the circulatory system; Z79.01 Long term (current) use of anticoagulants
CPT/HCPCS: 36415; 71045; 80053; 81001; 82550; 82553; 83735; 83880; 84443; 84484; 85025; 85610; 85730; 93005; 99284; G0378; J1650

== ENCOUNTER 2021-08-06 23:57 | Emergency (ER) | payer MEDICARE, OTHER ==
[~2021-08-06] VITALS: Ht 172.7 cm; Wt 111.6 kg
[2021-08-07] MEDS ORDERED: DIGOXIN INJ 0.25 MG/ML 2 ML AMP IV STA (00:06)
[2021-08-07] MEDS ORDERED: DILTIAZEM HCL 5 MG/ML 5 ML VIAL IV STA (00:06)
[2021-08-07] MEDS ORDERED: METOPROLOL TARTRATE INJ 1 MG/ML VIAL IV STA (00:06)
[2021-08-07 00:27] LABS: BASOPHILS # (AUTO) 0.1 (0.0-0.1); BASOPHILS % 0.5 % (0.0-1.0); EOSINOPHILS # (AUTO) 0.1 (0.0-0.4); EOSINOPHILS % 0.5 % (0.0-6.0); LYMPHOCYTES # (AUTO) 2.3 (1.0-3.2); LYMPHOCYTES % 22.8 % (18.0-39.1); MEAN CORPUSCULAR HEMOGLOBIN 30.2 pg (28-32); MEAN CORPUSCULAR HGB CONC 32.6 g/dL (31-35); MEAN CORPUSCULAR VOLUME 92.7 fL (81-99); MONOCYTES # (AUTO) 1.1 (0.2-0.8); MONOCYTES % 11.4 % (4.4-11.3); NEUTROPHILS # (AUTO) 6.3 (2.1-6.9); PLATELET COUNT 224 x10e3/uL (140-360); RED BLOOD COUNT 4.96 x10e6/uL (4.3-5.7); RED CELL DISTRIBUTION WIDTH 12.9 % (11.7-14.4)
[2021-08-07 00:45] LABS: ALBUMIN 3.8 g/dL (3.5-5.0); ALBUMIN/GLOBULIN RATIO 1.4 (0.8-2.0); ANION GAP 14.8 mmol/L (8-16); CREATININE, SERUM 0.88 mg/dL (0.72-1.25); POTASSIUM 4.8 mmol/L (3.5-5.1)
[2021-08-07 01:25] LABS: CREATINE KINASE MB 8.9 ng/mL (0-5.0)
[2021-08-07 02:29] VITALS: BP 148/84
== END 2021-08-07 02:21 | disposition home or self-care (01) ==
LOC: ER 08-07 00:03
DX: I48.91 Unspecified atrial fibrillation (principal); I10 Essential (primary) hypertension
CPT/HCPCS: 36415; 71045; 80053; 82550; 82553; 83880; 84484; 85025; 85379; 93005; 99284; J1160

== ENCOUNTER 2022-01-16 14:41 | Emergency (ER) | payer MEDICARE, OTHER ==
[~2022-01-16] VITALS: Ht 172.7 cm; Wt 111.6 kg
== END 2022-01-16 15:45 | disposition home or self-care (01) ==
LOC: ER 15:43
DX: R04.0 Epistaxis (principal); I10 Essential (primary) hypertension; I50.9 Heart failure, unspecified; I48.91 Unspecified atrial fibrillation; M54.9 Dorsalgia, unspecified; G89.29 Other chronic pain; E66.9 Obesity, unspecified
CPT/HCPCS: 99282

== ENCOUNTER → 2022-06-26 | Day surgery (SDC) | payer MEDICARE, OTHER ==
[2022-06-24 11:45] LABS: BASOPHILS # (AUTO) 0.1 (0.0-0.1); BASOPHILS % 1.4 % (0.0-1.0); EOSINOPHILS # (AUTO) 0.2 (0.0-0.4); EOSINOPHILS % 3.9 % (0.0-6.0); HEMATOCRIT 43.2 % (38.2-49.6); HEMOGLOBIN 13.6 g/dL (14.0-18.0); LYMPHOCYTES # (AUTO) 1.6 (1.0-3.2); LYMPHOCYTES % 25.9 % (18.0-39.1); MEAN CORPUSCULAR HEMOGLOBIN 28.5 pg (28-32); MEAN CORPUSCULAR HGB CONC 31.5 g/dL (31-35); MEAN CORPUSCULAR VOLUME 90.4 fL (81-99); MONOCYTES # (AUTO) 0.6 (0.2-0.8); MONOCYTES % 9.8 % (4.4-11.3); NEUTROPHILS # (AUTO) 3.6 (2.1-6.9); NEUTROPHILS % 58.5 % (38.7-80.0); PLATELET COUNT 275 x10e3/uL (140-360); RED BLOOD COUNT 4.78 x10e6/uL (4.3-5.7); RED CELL DISTRIBUTION WIDTH 13.6 % (11.7-14.4)
[2022-06-24 12:04] LABS: CALCIUM 8.9 mg/dL (8.4-10.2); CREATININE, SERUM 0.92 mg/dL (0.72-1.25)
[~2022-06-26] MED LIST changes: +ACETAMINOPHEN/CODEINE 300MG - 30MG TAB ONE; +AFRIN15 ML INH; +ATROVENT HFA12.9 GM INH; +B&O 60MG R/S 60 MG SUPP PR ONE; +CEFTRIAXONE 1 GM VIAL ONE; +DEXAMETHASONE SOD PHOS INJ 4 MG/ML SDV ONE; +FENTANYL CITRATE/PF 100MCG/2 ML INJ ONE; +GENTAMICIN 80MG/NS 100 ML 200 ML IV ONE; +HYDROCODON-ACE1 EA11 PO; +IOPAMIDOL 610MG/1ML 300 MG/ML VIAL IV ONE; +LIDOCAINE HCL 2% LOCAL INJ 5 ML SDV VIAL INJ ONE; +MIDAZOLAM HCL 2 MG/2 ML VIAL ONE; +ONDANSETRON HCL INJ 2MG/ML 2ML 2 MG/ML VIAL ONE; +POVIDONE IODINE 0.05% 0.05 % ML PO ONE; +PROPOFOL IV EMULSION 10 MG/ML 20 ML VIAL ONE; +SEVOFLURANE INHAL SOLN 250 ML PEN BTL ONE
[2022-06-26 13:25] VITALS: BP 132/90
== END | disposition home or self-care (01) ==
LOC: OR 08:51
PROVIDERS: ATTEND Urology
DX: N40.1 Benign prostatic hyperplasia with lower urinary tract symptoms (principal); N13.8 Other obstructive and reflux uropathy; R39.14 Feeling of incomplete bladder emptying; N35.919 Unspecified urethral stricture, male, unspecified site; N32.89 Other specified disorders of bladder; I48.91 Unspecified atrial fibrillation; I11.0 Hypertensive heart disease with heart failure; I50.9 Heart failure, unspecified; R63.4 Abnormal weight loss; M19.90 Unspecified osteoarthritis, unspecified site; M54.9 Dorsalgia, unspecified; M25.569 Pain in unspecified knee; Z01.810 Encounter for preprocedural cardiovascular examination; Z01.812 Encounter for preprocedural laboratory examination; Z01.818 Encounter for other preprocedural examination; Z79.899 Other long term (current) drug therapy
CPT/HCPCS: 52005; C9740; 36415; 71046; 74420; 80048; 85025; 93005; C1758; J0696; J1100; J1580; J2001; J2250; J2405; J3010; L8699

== ENCOUNTER 2022-07-24 17:08 | Emergency (ER) | payer MEDICARE, OTHER ==
[~2022-07-24] VITALS: Ht 172.7 cm; Wt 104.3 kg
[~2022-07-24 17:08] MED LIST changes: -ACETAMINOPHEN/CODEINE 300MG - 30MG TAB ONE; -B&O 60MG R/S 60 MG SUPP PR ONE; -CEFTRIAXONE 1 GM VIAL ONE; -DEXAMETHASONE SOD PHOS INJ 4 MG/ML SDV ONE; -FENTANYL CITRATE/PF 100MCG/2 ML INJ ONE; -GENTAMICIN 80MG/NS 100 ML 200 ML IV ONE; -IOPAMIDOL 610MG/1ML 300 MG/ML VIAL IV ONE; -LIDOCAINE HCL 2% LOCAL INJ 5 ML SDV VIAL INJ ONE; -MIDAZOLAM HCL 2 MG/2 ML VIAL ONE; -ONDANSETRON HCL INJ 2MG/ML 2ML 2 MG/ML VIAL ONE; -POVIDONE IODINE 0.05% 0.05 % ML PO ONE; -PROPOFOL IV EMULSION 10 MG/ML 20 ML VIAL ONE; -SEVOFLURANE INHAL SOLN 250 ML PEN BTL ONE
[2022-07-24 17:29] LABS: BASOPHILS % 0.7 % (0.0-1.0); EOSINOPHILS # (AUTO) 0.1 (0.0-0.4); EOSINOPHILS % 0.9 % (0.0-6.0); HEMATOCRIT 41.3 % (38.2-49.6); HEMOGLOBIN 13.1 g/dL (14.0-18.0); LYMPHOCYTES # (AUTO) 0.8 (1.0-3.2); LYMPHOCYTES % 14.3 % (18.0-39.1); MEAN CORPUSCULAR HEMOGLOBIN 28.5 pg (28-32); MEAN CORPUSCULAR HGB CONC 31.7 g/dL (31-35); MONOCYTES # (AUTO) 0.1 (0.2-0.8); MONOCYTES % 2.2 % (4.4-11.3); NEUTROPHILS # (AUTO) 4.4 (2.1-6.9); NEUTROPHILS % 80.2 % (38.7-80.0); PLATELET COUNT 228 x10e3/uL (140-360); RED BLOOD COUNT 4.59 x10e6/uL (4.3-5.7); RED CELL DISTRIBUTION WIDTH 13.6 % (11.7-14.4)
[2022-07-24 17:47] LABS: ALBUMIN 3.9 g/dL (3.5-5.0); ALBUMIN/GLOBULIN RATIO 1.2 (0.8-2.0); ANION GAP 17.3 mmol/L (8-16); CALCIUM 9.3 mg/dL (8.4-10.2); CREATININE, SERUM 0.85 mg/dL (0.72-1.25); POTASSIUM 4.3 mmol/L (3.5-5.1)
[2022-07-24 17:51] LABS: AMPHETAMINES SCREEN,URINE NEGATIVE (NEGATIVE); BENZODIAZEPINES SCREEN,URINE NEGATIVE (NEGATIVE); PHENCYCLIDINE SCREEN,URINE NEGATIVE (NEGATIVE)
[2022-07-24 17:53] LABS: CREATINE KINASE MB 1.7 ng/mL (0-5.0)
[2022-07-24] MEDS ORDERED: IOPAMIDOL 370 MG/ML 100 ML INFUS..BTL INJ ONE (18:26)
[2022-07-24] MEDS ORDERED: AUGMENTIN 500-1 EACH PO (19:45)
[2022-07-24] MEDS ORDERED: VENTOLIN HFA18 GM INH (19:45)
== END 2022-07-24 19:55 | disposition home or self-care (01) ==
LOC: ER 17:13
DX: R06.02 Shortness of breath (principal); U07.1 COVID-19; I48.91 Unspecified atrial fibrillation; R07.89 Other chest pain; R94.31 Abnormal electrocardiogram [ECG] [EKG]
CPT/HCPCS: 36415; 71260; 80053; 80307; 82550; 82553; 83690; 83880; 84484; 85025; 85379; 93005; 99284; Q9967; U0002

== ENCOUNTER 2022-09-10 11:47 | Inpatient (IN) | payer MEDICARE, OTHER ==
[~2022-09-10] VITALS: Ht 172.7 cm; Wt 104.3 kg
[~2022-09-10 11:47] MED LIST changes: +AUGMENTIN 500-1 EACH PO; +VENTOLIN HFA18 GM INH
[2022-09-10] MEDS ORDERED: SODIUM CHLORIDE FLUSH 10 ML SYR IV PRN (12:30)
[2022-09-10 12:36] LABS: BASOPHILS # (AUTO) 0.1 (0.0-0.1); EOSINOPHILS # (AUTO) 0.2 (0.0-0.4); EOSINOPHILS % 2.6 % (0.0-6.0); HEMATOCRIT 38.9 % (38.2-49.6); HEMOGLOBIN 12.5 g/dL (14.0-18.0); LYMPHOCYTES # (AUTO) 1.2 (1.0-3.2); LYMPHOCYTES % 15.9 % (18.0-39.1); MEAN CORPUSCULAR HEMOGLOBIN 28.2 pg (28-32); MEAN CORPUSCULAR HGB CONC 32.1 g/dL (31-35); MEAN CORPUSCULAR VOLUME 87.6 fL (81-99); MONOCYTES # (AUTO) 0.8 (0.2-0.8); MONOCYTES % 10.8 % (4.4-11.3); NEUTROPHILS % 69.3 % (38.7-80.0); PLATELET COUNT 197 x10e3/uL (140-360); RED BLOOD COUNT 4.44 x10e6/uL (4.3-5.7); RED CELL DISTRIBUTION WIDTH 13.4 % (11.7-14.4)
[2022-09-10 12:42] LABS: INR 0.97; PROTHROMBIN TIME 13.1 seconds (11.9-14.5)
[2022-09-10 12:43] LABS: PARTIAL THROMBOPLASTIN TIME 28.1 seconds (23.8-35.5)
[2022-09-10 12:53] LABS: ALBUMIN 3.8 g/dL (3.5-5.0); ALBUMIN/GLOBULIN RATIO 1.4 (0.8-2.0); ANION GAP 15.3 mmol/L (8-16); CALCIUM 8.9 mg/dL (8.4-10.2); CREATININE, SERUM 0.85 mg/dL (0.72-1.25); POTASSIUM 4.3 mmol/L (3.5-5.1)
[2022-09-10 13:15] LABS: CLARITY,URINE CLEAR (CLEAR); COLOR,URINE YELLOW (YELLOW); KETONES,URINE NEGATIVE (NEGATIVE); LEUKOCYTE ESTERASE ,URINE NEGATIVE (NEGATIVE); NITRITE,URINE NEGATIVE (NEGATIVE); PROTEIN,URINE DIPSTICK NEGATIVE (NEGATIVE); URINE UROBILINOGEN 0.2 mg/dL (0.2 - 1)
[2022-09-10 13:26] LABS: RBC,URINE 0-5 /HPF (0-5); WBC,URINE (MAN) 0-5 /HPF (0-5)
[2022-09-10] MEDS ORDERED: ONDANSETRON HCL INJ 2MG/ML 2ML 2 MG/ML VIAL IV PRN (14:15)
[2022-09-10] MEDS ORDERED: ASPIRIN 81 MG CHEW TAB PO ONE (14:15)
[2022-09-10] MEDS ORDERED: SODIUM CHLORIDE FLUSH 10 ML SYR INJ PRN (14:15)
[2022-09-10 18:05] VITALS: BP 142/95
[2022-09-10] MEDS ORDERED: ACETAMINOPHEN 325 MG TAB PO PRN (18:30)
[2022-09-10 20:00] VITALS: BP 142/95
[2022-09-10] MEDS: HYDROCODONE/APAP 5MG-325MG TAB PO PRN (21:31)
[2022-09-10] MEDS: APIXAB 2.5 MG TABLET PO SCH (22:27)
[2022-09-11] VITALS (8 sets, daily range): BP systolic 128–150; BP diastolic 87–96
[2022-09-11] MEDS: HYDROCODONE/APAP 5MG-325MG TAB PO PRN ×2 (06:58→16:08)
[2022-09-11] MEDS: ASPIRIN 325 MG TAB EC PO SCH (07:52)
[2022-09-11] MEDS: APIXAB 2.5 MG TABLET PO SCH ×2 (07:53→16:03)
[2022-09-11] MEDS: METOPROLOL TARTRATE 25 MG TAB PO SCH ×2 (07:54→16:02)
[2022-09-11] MEDS ORDERED: IOPAMIDOL 370 MG/ML 100 ML INFUS..BTL INJ ONE (10:32)
[2022-09-11] MEDS ORDERED: SODIUM CHLORIDE 0.9% 0 ML ONE (10:32)
[2022-09-11] MEDS: PROPAFENONE HCL 225 MG CAPCR PO SCH ×2 (12:41→21:34)
[2022-09-12] VITALS: BP 122/88
[2022-09-12 04:00] VITALS: BP 132/90
[2022-09-12] MEDS: HYDROCODONE/APAP 5MG-325MG TAB PO PRN ×2 (05:43→14:50)
[2022-09-12 07:12] LABS: BASOPHILS # (AUTO) 0.1 (0.0-0.1); BASOPHILS % 1.6 % (0.0-1.0); EOSINOPHILS # (AUTO) 0.4 (0.0-0.4); EOSINOPHILS % 5.6 % (0.0-6.0); HEMATOCRIT 39.9 % (38.2-49.6); LYMPHOCYTES # (AUTO) 1.4 (1.0-3.2); LYMPHOCYTES % 22.4 % (18.0-39.1); MEAN CORPUSCULAR HEMOGLOBIN 28.4 pg (28-32); MEAN CORPUSCULAR HGB CONC 32.6 g/dL (31-35); MEAN CORPUSCULAR VOLUME 87.3 fL (81-99); MONOCYTES % 14.8 % (4.4-11.3); NEUTROPHILS # (AUTO) 3.6 (2.1-6.9); NEUTROPHILS % 55.1 % (38.7-80.0); PLATELET COUNT 187 x10e3/uL (140-360); RED BLOOD COUNT 4.57 x10e6/uL (4.3-5.7); RED CELL DISTRIBUTION WIDTH 13.4 % (11.7-14.4)
[2022-09-12 07:33] LABS: ALBUMIN 3.7 g/dL (3.5-5.0); ALBUMIN/GLOBULIN RATIO 1.3 (0.8-2.0); ANION GAP 14.4 mmol/L (8-16); CALCIUM 8.8 mg/dL (8.4-10.2); CREATININE, SERUM 0.82 mg/dL (0.72-1.25); POTASSIUM 4.4 mmol/L (3.5-5.1)
[2022-09-12 07:50] LABS: CHOL/HDL RATIO 3.4 (3.9-4.7)
[2022-09-12 08:10] LABS: THYROID STIMULATING HORMONE 2.661 uIU/mL (0.350-4.940)
[2022-09-12] MEDS: APIXAB 2.5 MG TABLET PO SCH ×2 (08:27→16:45)
[2022-09-12] MEDS: PROPAFENONE HCL 225 MG CAPCR PO SCH (08:28)
[2022-09-12] MEDS: ASPIRIN 325 MG TAB EC PO SCH (08:28)
[2022-09-12] MEDS: METOPROLOL TARTRATE 25 MG TAB PO SCH ×2 (08:29→16:45)
[2022-09-12] MEDS ORDERED: LACTULOSE SYRUP 20 GM/30 ML UDC PO ONE (10:00)
[2022-09-12] MEDS ORDERED: ONDANSETRON HCL 4 MG ORAL DISINTEGRATING TAB PO PRN (10:15)
[2022-09-12 12:11] VITALS: BP 131/94
[2022-09-12 15:13] VITALS: BP 148/92
[2022-09-12] MEDS ORDERED: ELIQUIS2.5 MG PO (15:55)
[2022-09-12] MEDS ORDERED: LIPITOR20 MG PO (16:05)
== END 2022-09-12 17:50 | disposition home or self-care (01) | DRG 69 ==
LOC: ER 11:56 → ERHOLD 14:12 → MED/SURG 18:05 → OBSVTOIN 09-12 09:03
PROVIDERS: ADMIT Internal Medicine; ATTEND Internal Medicine
DX: G45.9 Transient cerebral ischemic attack, unspecified (principal); I48.0 Paroxysmal atrial fibrillation; R04.0 Epistaxis; Z79.01 Long term (current) use of anticoagulants; E66.09 Other obesity due to excess calories; Z68.35 Body mass index [BMI] 35.0-35.9, adult; N40.0 Benign prostatic hyperplasia without lower urinary tract symptoms; Z53.29 Procedure and treatment not carried out because of patient's decision for other reasons
CPT/HCPCS: 36415; 70450; 71045; 80053; 80061; 81001; 82948; 83880; 84443; 84484; 85025; 85610; 85730; 93005; 93880; 94760; 99284; G0378; J2405; J7050; Q9967

== ENCOUNTER → 2022-10-28 | Outpatient (CLI) | payer MEDICARE, OTHER ==
[~2022-10-28] MED LIST changes: +ELIQUIS2.5 MG PO; +LIPITOR20 MG PO
== END ==
LOC: US 08:06
PROVIDERS: ATTEND Urology
DX: D41.01 Neoplasm of uncertain behavior of right kidney (principal)
CPT/HCPCS: 76770

== ENCOUNTER → 2023-03-13 | Outpatient (CLI) | payer MEDICARE, OTHER ==
[~2023-03-13] MED LIST changes: +LIDOCAINE HCL 2% LOCAL INJ 5 ML SDV VIAL INJ ONE; +POVIDONE IODINE 0.05% 0.05 % ML PO ONE; +PROPOFOL IV EMULSION 10 MG/ML 20 ML VIAL ONE
== END ==
LOC: MRI 09:05
PROVIDERS: ATTEND Family Medicine
DX: M47.896 Other spondylosis, lumbar region (principal); M54.16 Radiculopathy, lumbar region
CPT/HCPCS: 72148; J2001; J2704

== ENCOUNTER 2024-04-18 14:32 | Emergency (ER) | payer MEDICARE, OTHER ==
[~2024-04-18] VITALS: Ht 170.2 cm; Wt 113.4 kg
[~2024-04-18 14:32] MED LIST changes: +FEROSUL325 MG PO; -LIDOCAINE HCL 2% LOCAL INJ 5 ML SDV VIAL INJ ONE; -POVIDONE IODINE 0.05% 0.05 % ML PO ONE; -PROPOFOL IV EMULSION 10 MG/ML 20 ML VIAL ONE
[2024-04-18 15:43] LABS: BASOPHILS # (AUTO) 0.1 (0.0-0.1); BASOPHILS % 0.9 % (0.0-1.0); EOSINOPHILS # (AUTO) 0.2 (0.0-0.4); EOSINOPHILS % 3.1 % (0.0-6.0); HEMATOCRIT 42.3 % (38.2-49.6); HEMOGLOBIN 13.8 g/dL (14.0-18.0); LYMPHOCYTES # (AUTO) 1.3 (1.0-3.2); MEAN CORPUSCULAR HEMOGLOBIN 31.4 pg (28-32); MEAN CORPUSCULAR HGB CONC 32.6 g/dL (31-35); MEAN CORPUSCULAR VOLUME 96.4 fL (81-99); MONOCYTES # (AUTO) 0.8 (0.2-0.8); MONOCYTES % 14.7 % (4.4-11.3); NEUTROPHILS # (AUTO) 3.1 (2.1-6.9); NEUTROPHILS % 57.9 % (38.7-80.0); PLATELET COUNT 165 x10e3/uL (140-360); RED BLOOD COUNT 4.39 x10e6/uL (4.3-5.7); RED CELL DISTRIBUTION WIDTH 12.2 % (11.7-14.4); WHITE BLOOD COUNT 5.43 x10e3/uL (4.8-10.8)
[2024-04-18 16:02] LABS: ALANINE AMINOTRANSFERASE 33 IU/L (0-55); ALBUMIN 3.7 g/dL (3.5-5.0); ALBUMIN/GLOBULIN RATIO 1.2 (0.8-2.0); ALKALINE PHOSPHATASE 38 IU/L (40-150); ANION GAP 15.2 mmol/L (8-16); BILIRUBIN,TOTAL 1.1 mg/dL (0.2-1.2); BLOOD UREA NITROGEN 14 mg/dL (7-26); BUN/CREATININE RATIO 16 (6-25); CALCIUM 8.9 mg/dL (8.4-10.2); CARBON DIOXIDE 22 mmol/L (22-29); CHLORIDE 104 mmol/L (98-107); CREATININE, SERUM 0.85 mg/dL (0.72-1.25); EST GLOMERULAR FILTRATION RATE 95 ML/MIN (>=60); GLUCOSE 104 mg/dL (74-118); POTASSIUM 4.2 mmol/L (3.5-5.1); SODIUM 137 mmol/L (136-145); TOTAL PROTEIN 6.8 g/dL (6.5-8.1)
[2024-04-18 16:20] LABS: TROPONIN I < 0.001 ng/mL (0-0.300)
[2024-04-18 16:30] VITALS: PULSE 62; RESP 16; TEMP 98.1; O2SAT 96
== END 2024-04-18 16:40 | disposition home or self-care (01) ==
LOC: ER 14:38
DX: R06.02 Shortness of breath (principal); I10 Essential (primary) hypertension; I50.9 Heart failure, unspecified; I48.91 Unspecified atrial fibrillation; E66.9 Obesity, unspecified; M54.9 Dorsalgia, unspecified; M25.561 Pain in right knee; M79.671 Pain in right foot; G89.29 Other chronic pain; R94.31 Abnormal electrocardiogram [ECG] [EKG]
CPT/HCPCS: 36415; 71045; 80053; 83880; 84484; 85025; 93005; 99284

== ENCOUNTER → 2025-02-04 | Day surgery (SDC) | payer MEDICARE, OTHER ==
[2025-02-01 11:56] LABS: BASOPHILS # (AUTO) 0.1 (0.0-0.1); BASOPHILS % 1.7 % (0.0-1.0); EOSINOPHILS # (AUTO) 0.1 (0.0-0.4); EOSINOPHILS % 2.2 % (0.0-6.0); HEMOGLOBIN 14.1 g/dL (14.0-18.0); LYMPHOCYTES # (AUTO) 1.6 (1.0-3.2); LYMPHOCYTES % 27.6 % (18.0-39.1); MEAN CORPUSCULAR HEMOGLOBIN 31.2 pg (28-32); MEAN CORPUSCULAR HGB CONC 33.6 g/dL (31-35); MEAN CORPUSCULAR VOLUME 92.9 fL (81-99); MONOCYTES # (AUTO) 0.8 (0.2-0.8); MONOCYTES % 13.5 % (4.4-11.3); NEUTROPHILS # (AUTO) 3.2 (2.1-6.9); NEUTROPHILS % 54.3 % (38.7-80.0); PLATELET COUNT 211 x10e3/uL (140-360); RED BLOOD COUNT 4.52 x10e6/uL (4.3-5.7); RED CELL DISTRIBUTION WIDTH 12.7 % (11.7-14.4); WHITE BLOOD COUNT 5.86 x10e3/uL (4.8-10.8)
[~2025-02-04] MED LIST changes: +ACETAMINOPHEN 1000 MG/100 ML 100 ML IV ONE; +AMBIEN10 MG PO; +ATORVASTATIN CA10 MG PO; +DEXAMETHASONE SOD PHOS INJ 4 MG/ML SDV ONE; +FENTANYL CITRATE/PF 100MCG/2 ML INJ ONE; +HYDROCODON-ACE1 EA12; +LIDOCAINE HCL 2% LOCAL INJ 5 ML SDV VIAL INJ ONE; +ONDANSETRON HCL INJ 2MG/ML 2ML 2 MG/ML VIAL ONE; +PHENYLEPHRINE HCL 1% 10 MG/ML VIAL ONE; +PROPOFOL IV EMULSION 10 MG/ML 20 ML VIAL ONE; +SEVOFLURANE INHAL SOLN 250 ML PEN BTL ONE
[2025-02-04] MEDS: LACTATED RINGER'S 1,000 ML ONE (06:07)
[2025-02-04] MEDS: CEFAZOLIN SODIUM 2 GM ONE (06:07)
[2025-02-04 07:13] LABS: ANION GAP 15.1 mmol/L (8-16); CREATININE, SERUM 0.91 mg/dL (0.72-1.25); POTASSIUM 4.1 mmol/L (3.5-5.1)
[2025-02-04 10:45] VITALS: BP 118/89; PULSE 85; RESP 15; O2SAT 98
== END | disposition home or self-care (01) ==
LOC: OR 05:15
PROVIDERS: ATTEND Podiatrist Foot Surgery
DX: G57.61 Lesion of plantar nerve, right lower limb (principal); M20.41 Other hammer toe(s) (acquired), right foot; G58.8 Other specified mononeuropathies; M06.9 Rheumatoid arthritis, unspecified; I48.91 Unspecified atrial fibrillation; I11.0 Hypertensive heart disease with heart failure; I50.9 Heart failure, unspecified; E78.5 Hyperlipidemia, unspecified; N40.0 Benign prostatic hyperplasia without lower urinary tract symptoms; Z01.812 Encounter for preprocedural laboratory examination; Z01.818 Encounter for other preprocedural examination; Z79.899 Other long term (current) drug therapy; Z86.73 Personal history of transient ischemic attack (TIA), and cerebral infarction without residual deficits
CPT/HCPCS: 28080 ×2; 28285; 28296; 28308; 36415 ×2; 64704; 64727; 71046; 80048; 85025; 93005; C1713 ×6; J0131; J1100; J2003; J2371; J2405; J2704; J3010; J7121